=== PATIENT | female | born 1980 | race Caucasian/White ===

== ENCOUNTER 2020-02-25 15:01 | Emergency (ER) | payer OTHER, MEDICAID, SELFPAY ==
[2020-02-25 15:44] VITALS: BP 177/91; PULSE 78; RESP 18; TEMP 36.9; O2SAT 98; BMI 30.1
--- NOTE | 2020-02-25 16:29 | PC.NURSE ---
PT WAS BROUGHT IN FROM WAITING AREA AND BECAME UPSET AT NURSE WHEN SHE APPROACHED PT WITH HER PPE ON NURSE EXPLAINED TO PT IT IS FOR HER AND THE PT PROTECTION. PT BEGAN TO YELL AT NURSE AND TELL HER AHE DOES NOT HAVE COVID SHE ONLY HAS BRONCHITIS. PT HAS NO RECENT NEGATIVE TEST BUT JUST KNOWS IT IS ONLY BRONCHITIS. PT STATES SHE JUST WANTS ANTIBIOTIC AND TO LEAVE. PT TOLD NURSE IF AHE GET COVID FROM BEING HERE SHE WILL BE ANGRY. NURSE TOLD PT SHE WAS FREE TO F/U WITH PCP.
--- NOTE | 2020-02-25 16:49 | ED.URI ---
HPI - URI/Sore Throat General Chief Complaint: Upper Respiratory Symptoms Stated Complaint: BRONCHITIS Time Seen by Provider: 02/25/20 16:41 Source: patient Mode of arrival: ambulatory Limitations: no limitations History of Present Illness HPI Narrative: 39-year-old female presenting to the ED with complaints of productive cough for the past few days worse today. Denies any fevers, sore throat, nasal congestion, chest pain or shortness of breath, nausea/vomiting, abdominal pain, dysuria, constipation or diarrhea or any other symptoms complaints or concerns at this time. Denies recent sick contacts. Reports that she does not want to be tested for COVID as she does not believe this is COVID. Denies recent travel. Related Data Previous Rx's Medication Instructions Recorded albuterol sulfate 0.63 mg INHALATION QID PRN #90 ml 02/25/20 albuterol sulfate 1 inh INHALATION QID PRN #8.5 g 02/25/20 azithromycin See Rx Instructions PO .COMPLEX #3 02/25/20 tab dextromethorphan-guaifenesin 10 ml PO Q4-8H PRN #118 ml 02/25/20 [Robitussin Cough-Chest Tate DM] prednisone 40 mg PO DAILY 5 Days #10 tab 02/25/20 Allergies Allergy/AdvReac Type Severity Reaction Status Date / Time naproxen [NAPROXEN] Allergy Severe ANAPHYLAXIS Verified 02/25/20 15:47 codeine [CODEINE] Allergy Intermediate HIVES Verified 02/25/20 15:47 Sulfa (Sulfonamide Allergy Intermediate DIARRHEA Verified 02/25/20 15:47 Antibiotics) [SULFA (SULFONAMIDE ANTIBIOTICS)] Review of Systems Review of Systems: Constitutional : No Fever, No Chills, No fatigue, No Malaise ENT/Mouth : No sore throat, No runny nose Eyes: No Discharge Cardiovascular : No Chest Pain, No SOB Respiratory : + Cough, + Sputum, No Wheezing, No Smoke Exposure, No Dyspnea Gastrointestinal : No Nausea, No Vomiting, No Diarrhea Genitourinary : No irregular bleeding, No Dysuria, No Urinary Frequency, No Hematuria, No Urinary Incontinence, No Urgency, No Flank Pain, Musculoskeletal : No Myalgia Skin : No rash Neuro : No Headache Yes all other systems are reviewed and are negative PMFSH Past Medical History Attestation statement: The following information was validated with the patient. Social History Social History Advance Directives: No Advance Directives Information Provided: Yes Physical Exam Vital Signs: Vital Signs: Last Vital Signs Temp 98.4 F 02/25/20 15:44 Pulse 78 02/25/20 15:44 Resp 18 02/25/20 15:44 BP 177/91 H 02/25/20 15:44 Pulse Ox 98 02/25/20 15:44 Body Mass Index 30.1 vital signs have been reviewed as normal and appeared to be correct. Blood pressure normal. Heart rate normal. Respiration rate normal. Temperature normal. Oxygen saturation normal. Appearance: Alert. Oriented X3. No acute distress. Head: Normal external exam. Normocephalic. Atraumatic. Eyes: PERRLA. EOMI. Conjunctiva and sclera normal. Eyelids normal. ENT: EAC normal. TM's Normal. Pharynx normal. Uvula midline. Moist mucous membranes. No trismus noted. No drooling noted. No muffled voice noted. Neck: Normal inspection. Neck supple. FROM. No adenopathy. No meningeal signs. CVS: Normal heart rate and rhythm. Heart sound normal. No murmurs noted. Pulses normal throughout. Respiratory: No respiratory distress. Painless inspiration. Breath sounds normal. No wheezes/rales/rhonchi noted. Chest nontender. No accessory muscle usage noted or decreased air movement noted. Back: Full range of motion noted. Skin: Skin warm and dry. Normal skin color. Normal skin turgor. No rashes/lesions/lacerations noted. Extremities: Extremities exhibit normal range of motion. Extremities nontender. Neuro: Oriented X 3. No motor deficit. No sensory deficit. Reflexes normal. Course Course Course Narrative: Will DC home with a course of antibiotics, albuterol inhaler, steroids and instructions return if any new or worsening symptoms. Patient is refusing COVID/RSV and flu swab at this time. Instructed to return if any new or worsening symptoms follow-up with primary care provider. Patient understands agrees the plan. MDM - URI/Sore Throat Medical Records Attestation: I reviewed the patient's medical records. Discharge Plan Discharge Clinical Impression: Bronchitis Patient Disposition: Home, Self-Care Instructions: Acute Bronchitis (ED) Prescriptions: New prednisone 20 mg tablet 40 mg PO DAILY 5 Days Qty: 10 RF: 0 azithromycin 500 mg tablet See Rx Instructions PO .COMPLEX Qty: 3 RF: 0 albuterol sulfate 90 mcg/actuation HFA aerosol inhaler 1 inh inhalation QID PRN (Reason: shortness of breath or wheezing) Qty: 8.5 RF: 0 albuterol sulfate 0.63 mg/3 mL solution for nebulization 0.63 mg inhalation QID PRN (Reason: shortness of breath or wheezing) Qty: 90 RF: 0 Robitussin Cough-Chest Tate DM 5-100 mg/5 mL liquid 10 ml PO Q4-8H PRN (Reason: cough) Qty: 118 RF: 0 Referrals: Physician,None [Primary Care Provider] - 2 days (your pcp) Print Language: Kiswahili
== END 2020-02-25 17:03 | disposition home or self-care (01) ==
PROVIDERS: Emergency Provider Emergency Medicine
DX: J20.9 Acute bronchitis, unspecified (principal); R05 Cough; Z79.899 Other long term (current) drug therapy
CPT/HCPCS: 99283; 99284

== ENCOUNTER 2021-02-23 10:55 | Outpatient (REF) | payer OTHER, MEDICAID, SELFPAY | END 2021-02-23 10:56 | disposition home or self-care (01) | LOC: HO.LAB 10:55 | PROVIDERS: Visit Provider Internal Medicine | DX: Z20.822 Contact with and (suspected) exposure to COVID-19 (principal) | CPT/HCPCS: C9803; U0003; U0005 ==

== ENCOUNTER 2021-11-19 10:49 | Emergency (ER) | payer OTHER, MEDICAID, SELFPAY ==
[2021-11-19 10:54] VITALS: BP 136/81; PULSE 97; RESP 17; TEMP 36.1; O2SAT 97; BMI 29.7
== END 2021-11-19 15:05 | disposition left against medical advice (07) ==
PROVIDERS: Emergency Provider Emergency Medicine
DX: H60.02 Abscess of left external ear (principal)
CPT/HCPCS: 99281

== ENCOUNTER 2023-08-08 07:29 | Emergency (ER) | payer OTHER, MEDICAID, SELFPAY ==
[2023-08-08 07:38] VITALS: BP 134/77; PULSE 83; RESP 16; TEMP 36.9; O2SAT 97; BMI 25.7
[2023-08-08 08:09] LABS: MANUAL DIFF FLAG NO
[2023-08-08 08:11] LABS: Basophils Absolute Auto 0.1 X10*3/uL (0.0-0.2); Basophils Percent Auto 0.6 % (0-2); Eosinophils Absolute Auto 0.2 X10*3/uL (0.0-0.4); Eosinophils Percent Auto 2.6 % (0-4); Hematocrit 41.1 % (37.0-47.0); Hemoglobin 14.1 g/dl (12.0-16.0); Imm Gran Abs Auto 0.03 X10*3/uL (0.00-0.03); Imm Gran Pct Auto 0.3 % (0.0-0.4); Lymphocytes Absolute Auto 2.6 X10*3/uL (1.2-4.9); Mean Corpuscular HGB Conc 34.3 g/dl (31.0-35.0); Mean Corpuscular Hemoglobin 30.4 pg (27.0-33.0); Mean Corpuscular Volume 88.6 fL (80.0-98.0); Monocytes Absolute Auto 0.5 X10*3/uL (0.1-1.2); Monocytes Percent Auto 4.9 % (2-11); Neutrophils Percent Auto 63.6 % (45-73); Platelet Count 200 X10*3/uL (160-400); Red Blood Count 4.64 X10*6/uL (4.20-5.50); Red Cell Distribution Width 13.2 % (11.0-16.0); White Blood Count 9.4 X10*3/uL (4.8-10.8)
--- NOTE | 2023-08-08 08:12 | ED.GENADULT ---
HPI - General Adult General Chief complaint: Dental/Oral Stated complaint: has soars in mouth giving her fever and sugar prob Time Seen by Provider: 08/08/23 08:11 Source: patient Mode of arrival: ambulatory Limitations: no limitations History of Present Illness HPI narrative: Patient is a 43 year old assigned female at with a history of DM presenting to the emergency department today with mouth pain. Patient states that she has an upper partial denture and admitted work it too long recently, causing an ulceration on the roof of her mouth. Patient states that her sugars have been higher than normal usual and she is working on that with her providers. Patient denies any dizziness, lightheadedness, abdominal pain, nausea, vomiting, fever, chills, blurry vision, double vision, loss of vision, chest pain, difficulty breathing, shortness of breath, back pain, night sweats, pain with urination, increased urinary frequency, increased urinary urgency, blood in her urine or stool, syncope or a near syncopal episode, recent trauma or falls, bowel incontinence, bladder incontinence, bowel retention, bladder retention, or any other complaints at this time. Onset (ago): day(s) Location: mouth and left Radiation: non-radiation Severity: mild Severity scale (1-10): 3 Relieving factors: none Exacerbating factors: none Associated symptoms: denies other symptoms Treatments prior to arrival: none Related Data Previous Rx's ?Medication ?Instructions ?Recorded albuterol sulfate 0.63 mg/3 mL 0.63 mg (3 mL) inhalation QID PRN 02/25/20 solution for nebulization shortness of breath or wheezing #90 mL albuterol sulfate 90 mcg/actuation 1 inh inhalation QID PRN shortness 02/25/20 aerosol inhaler of breath or wheezing #8.5 grams azithromycin 500 mg tablet See Rx Instructions PO .COMPLEX #3 02/25/20 tabs dextromethorphan-guaifenesin 5 10 ml PO Q4-8H PRN cough #118 mL 02/25/20 mg-100 mg/5 mL oral liquid (Robitussin Cough-Chest Congestion DM) prednisone 20 mg tablet 40 mg (2 x 20 mg) PO DAILY 02/25/20 wheezing 5 days #10 tabs chlorhexidine gluconate 0.12 % 15 ml buccal BID #118 mL 08/08/23 mouthwash (Peridex) penicillin V potassium 500 mg 500 mg PO BID 10 days #20 tabs 08/08/23 tablet Allergies Allergy/AdvReac Type Severity Reaction Status Date / Time naproxen [NAPROXEN] Allergy Severe ANAPHYLAXIS Verified 08/08/23 07:40 codeine [CODEINE] Allergy Intermediate HIVES Verified 08/08/23 07:40 Sulfa (Sulfonamide Allergy Intermediate DIARRHEA Verified 08/08/23 07:40 Antibiotics) [SULFA (SULFONAMIDE ANTIBIOTICS)] Review of Systems Constitutional: Constitutional: Reports no additional constitutional complaints, Denies chills, Denies fever(s) and Denies night sweats Eyes: Eyes: Reports no additional eye complaints, Denies blurry vision, Denies change in vision, Denies diplopia, Denies eye discharge, Denies loss of vision and Denies eye pain ENT: Denies dizziness and Reports mouth pain Cardiovascular: Cardiovascular: Reports no additional cardiovascular complaints, Denies chest pain, Denies lightheadedness, Denies Loss of Consciousness and Denies dyspnea Respiratory: Respiratory: Reports no additional respiratory complaints and Denies dyspnea Gastrointestinal: Gastrointestinal: Reports no additional gastrointestinal complaints, Denies abdominal pain, Denies melena, Denies hematochezia, Denies change in bowel habits and Denies change in stool character Genitourinary: Genitourinary: Denies hematuria, Denies urinary frequency, Denies dysuria, Denies urinary incontinence, Denies urinary hesitancy and Denies urinary urgency Musculoskeletal: Musculoskeletal: Reports no additional musculoskeletal complaints, Denies numbness and Denies tingling Neurologic: Denies dizziness, Denies loss of vision, Denies numbness and Denies tingling Psychiatric: Psychiatric: Reports no additional psychiatric complaints Endocrine: Endocrine: Reports no additional endocrine complaints Hematologic/Lymphatic: Hematologic/Lymphatic: Reports no additional hematologic/lymphatic complaints Allergic/Immunologic: Allergic/Immunologic: Reports no additional allergic/immunologic complaints PMFSH Past Medical History Attestation statement: The following information was validated with the patient. Source: old records reviewed and nursing notes reviewed Social History Social History Alcohol intake: never Advance Directives: No Advance Directives Information Provided: No Physical Exam ED Vital Signs: Vital Signs - 24 hr 08/08/23 07:38 08/08/23 08:42 Temperature 98.5 F 98.1 F Pulse Rate 83 82 Respiratory Rate 16 16 Blood Pressure 134/77 131/72 Pulse Oximetry 97 97 Oxygen Delivery Method Room Air Room Air BMI result Body Mass Index 25.7 Const General: cooperative, no acute distress, alert and awake Nutritional Appearance: well nourished Orientation/consciousness: patient oriented x3 Limitations: no limitations HENMT Head: Yes normal to inspection and Yes atraumatic Ears: hearing grossly normal bilaterally and external ears normal General nose exam: Normal external nose present, no nasal discharge noted and no epistaxis Face and sinus: Yes normal facial exam, No abrasion and No laceration Mouth: Normal oral and palatal mucosa present, no drooling and no muffled voice Teeth image: 1. ulceration present Eyes General: appearance normal, both eyes and all related structures Periorbital: periorbital findings normal Eyelids: Yes eyelids normal Conjunctivae: conjunctivae normal Pupils: Equal, round and reactive pupils present EOM: EOMs intact bilaterally Neck Neck: Yes normal visual inspection, Yes full ROM and Yes no lymphadenopathy Chest Chest palpation & inspection: normal inspection of the chest Resp Effort & Inspection: normal respiratory effort and able to speak in complete sentences GI Inspection: Yes normal to inspection Neuro General: patient oriented x3 and moves all extremities Cranial nerves: Yes Equal, round and reactive pupils present Cognition (Neuro): normal cognition Motor exam (neuro): 5/5 motor strength present throughout Sensory Exam: Normal double simultaneous stimulation for sensation Coordination: [id number] test normal Extrem General: Yes normal to inspection, Yes full ROM and Yes capillary refill normal Psych Appearance: grossly normal Mental Status: mental status grossly normal Affect: normal affect Attitude: cooperative Thought process: Normal thought process present Thought content: Normal thought content present Insight: Good insight present (Psych) Medical Decision Making Medical Decision Making MDM Narrative: Patient is a 43 year old assigned female at with a history of DM presenting to the emergency department today with left upper mouth pain. Patient's physical exam showed an ulceration where the partial denture was rubbing on the upper left roof of mouth, no active bleeding. Patient's blood work showed a mildly elevated blood sugar which was expected. I explained my physical exam findings as well as all test results to the patient. I answered all questions asked by the patient. I stressed the importance of the patient taking her medication as prescribed. I stressed the importance of the patient following up with her primary care provider. I stressed the importance of the patient returning to the emergency department immediately if her symptoms were to worsen or if she were to develop any dizziness, shortness of breath, difficulty breathing, chest pain, blurry vision, loss of vision, nausea, vomiting, abdominal pain, fever, chills, back pain, or any other complaints. Patient verbalized agreement and understanding with this treatment plan and discharge. Differential Diagnosis Differential Diagnoses: The differential diagnosis associated with the presentation includes Mouth pain Aphthous ulcer of the mouth Hyperglycemia Admission/Observation Consideration of admission/observation: Escalation of care including admission/observation considered Patient would have been admitted to the hospital had her work up had any findings where hospital admission was appropriate and her clinical presentation warranted hospital admission. Lab Data [facility] Lab Attestation statement: I reviewed the patient's lab results. My interpretation of these results are in the [facility] Rationale portion of this note. 08/08/23 08:04 08/08/23 08:04 Labs: Lab Results 08/08/23 Range/Units 08:04 WBC 9.4 (4.8-10.8) X10*3/uL RBC 4.64 (4.20-5.50) X10*6/uL Hgb 14.1 (12.0-16.0) g/dl Hct 41.1 (37.0-47.0) % MCV 88.6 (80.0-98.0) fL MCH 30.4 (27.0-33.0) pg MCHC 34.3 (31.0-35.0) g/dl RDW 13.2 (11.0-16.0) % Plt Count 200 (160-400) X10*3/uL MPV 10.0 (9.4-12.3) fL Immature Gran % (Auto) 0.3 (0.0-0.4) % Neut % (Auto) 63.6 (45-73) % Lymph % (Auto) 28.0 (20-40) % [place] % (Auto) 4.9 (2-11) % Eos % (Auto) 2.6 (0-4) % Baso % (Auto) 0.6 (0-2) % Lymph # (Auto) 2.6 (1.2-4.9) X10*3/uL [place] # (Auto) 0.5 (0.1-1.2) X10*3/uL Eos # (Auto) 0.2 (0.0-0.4) X10*3/uL Baso # (Auto) 0.1 (0.0-0.2) X10*3/uL Abs Immat Gran (auto) 0.03 (0.00-0.03) X10*3/uL Absolute Neuts (auto) 6.0 (2.0-8.3) x10*3/uL Absolute Nucleated RBC 0.000 (0.0-0.012) X10*3/uL Nucleated RBC % (auto) 0.0 (0.0-0.2) /100WBC Sodium 136 (135-145) mmol/L Potassium 4.4 (3.3-5.1) mmol/L Chloride 101 (96-108) mmol/L Carbon Dioxide 24 (22-29) mmol/L Anion Gap 15 (12-20) BUN 12 (9-16) mg/dL Creatinine 0.74 (0.5-1.4) mg/dL Estim Creat Clear Calc 97.8 Estimated GFR > 60 Random Glucose 360 H* (60-115) mg/dL Calcium 9.5 (8.4-10.2) mg/dL Prescription Management I considered prescription management with: Antibiotic (given patient's history of DM and current clinical presentation, I prescribed an antibiotic for possible oral infection) Chronic Conditions Patient?s care impacted by: Diabetes Discharge Plan Discharge Clinical Impression: Hyperglycemia, Aphthous ulcer of mouth Patient Disposition: Home, Self-Care Instructions: Canker Sores (ED), Diabetic Hyperglycemia (ED) Additional Instructions: Take your antibiotic as prescribed. Follow up with your primary care provider. Return to the emergency department immediately if your symptoms worsen or if you develop any dizziness, shortness of breath, difficulty breathing, chest pain, blurry vision, loss of vision, nausea, vomiting, abdominal pain, fever, chills, back pain, or any other complaints. Prescriptions: New penicillin V potassium 500 mg tablet 500 mg PO BID 10 Days Qty: 20 0RF chlorhexidine gluconate [Peridex] 0.12 % mouthwash 15 ml buccal BID Qty: 118 0RF No Action prednisone 20 mg tablet 40 mg PO DAILY 5 Days Qty: 10 0RF azithromycin 500 mg tablet See Rx Instructions PO .COMPLEX Qty: 3 0RF Rx Instructions: take 500 mg today (day 1), then 250 mg for 4 days (days 2-5) albuterol sulfate 90 mcg/actuation HFA aerosol inhaler 1 inh inhalation QID PRN (Reason: shortness of breath or wheezing) Qty: 8.5 0RF albuterol sulfate 0.63 mg/3 mL solution for nebulization 0.63 mg inhalation QID PRN (Reason: shortness of breath or wheezing) Qty: 90 0RF Robitussin Cough-Chest Tate DM 5-100 mg/5 mL liquid 10 ml PO Q4-8H PRN (Reason: cough) Qty: 118 0RF Referrals: [facility] [place] Medicine [Provider Group] (Call to establish and follow up with a primary care provider. If you already have a primary care provider, please follow up with them.) [facility] [place] [facility] [Provider Group] [facility] [place] [facility] Care[facility] [Provider Group] Stand Alone Forms: Work/School Release Interventions: ED Discharge Assessment Last Done: 08/08/23 08:42 Discharge Date/Time: 08/08/23 08:43 Print Language: Luxembourgish
[2023-08-08 08:26] LABS: Anion Gap 15 (12-20); Blood Urea Nitrogen 12 mg/dL (9-16); Calcium 9.5 mg/dL (8.4-10.2); Carbon Dioxide 24 mmol/L (22-29); Chloride 101 mmol/L (96-108); Creatinine Clr Calc Pharmacy 97.8; Estimated Glomerular Filt Rate > 60; Glucose Random 360 mg/dL (60-115); Potassium 4.4 mmol/L (3.3-5.1); Sodium 136 mmol/L (135-145)
[2023-08-08 08:42] VITALS: BP 131/72; PULSE 82; RESP 16; TEMP 36.7; O2SAT 97
--- NOTE | 2023-08-08 08:42 | PC.NURSE ---
pt a&ox3, was here only for dental pain, will discharge with abx.
== END 2023-08-08 08:43 | disposition home or self-care (01) ==
PROVIDERS: Emergency Provider Student in an Organized Health Care Education/Training Program
DX: K12.0 Recurrent oral aphthae (principal); E11.65 Type 2 diabetes mellitus with hyperglycemia; Z79.899 Other long term (current) drug therapy
CPT/HCPCS: 36415; 80048; 85025; 99282; 99283

== ENCOUNTER 2023-09-04 12:43 | Emergency (ER) | payer OTHER, MEDICAID, SELFPAY ==
--- NOTE | ~2023-09-04 | XR_ITS ---
EXAMINATION: XR FOOT, RIGHT CLINICAL INFORMATION: Potential infection of the right heel.? Osteomyelitis COMPARISON: Right foot 03/24/2019 TECHNIQUE: AP, lateral, and oblique views of the right foot. FINDINGS: There is marked soft tissue swelling of the foot, particularly the dorsum and the plantar aspect of the heel. The bones are intact. No acute fracture.? Old healed fracture of the distal fifth metatarsal. No bone destruction or periosteal reaction. Alignment is anatomic. Mild degenerative change of the talonavicular joint. XR/XR foot RT min 3V IMPRESSION: Marked soft tissue swelling of the foot. No radiographic evidence of osteomyelitis. Depending on level of clinical concern, MRI scan could be obtained for further evaluation.
--- NOTE | ~2023-09-04 | XR_ITS ---
EXAMINATION: 1. Right ankle. 2. Right lower leg CLINICAL INFORMATION: Heel wound. Cellulitis. COMPARISON: None. TECHNIQUE: 1. Right ankle. 3 views 2. Right lower leg. 2 views FINDINGS: 1. Right ankle. No focal bone lesion or bone destruction. Joint space is normal. No soft tissue abnormality. 2. Right lower leg. No focal bone lesion. Tibia and fibula are normal. Knee joint is unremarkable. No soft tissue abnormality. XR/XR ankle RT min 3V IMPRESSION: 1. Normal right ankle. 2. Normal right lower leg.
--- NOTE | ~2023-09-04 | XR_ITS ---
EXAMINATION: 1. Right ankle. 2. Right lower leg CLINICAL INFORMATION: Heel wound. Cellulitis. COMPARISON: None. TECHNIQUE: 1. Right ankle. 3 views 2. Right lower leg. 2 views FINDINGS: 1. Right ankle. No focal bone lesion or bone destruction. Joint space is normal. No soft tissue abnormality. 2. Right lower leg. No focal bone lesion. Tibia and fibula are normal. Knee joint is unremarkable. No soft tissue abnormality. XR/XR tibia fibula RT 2V IMPRESSION: 1. Normal right ankle. 2. Normal right lower leg.
[2023-09-04 12:57] VITALS: BP 108/83; PULSE 102; RESP 19; TEMP 37; O2SAT 99; BMI 24.3
--- NOTE | 2023-09-04 13:00 | ED_ITS ---
HPI - Skin/Abscess/Foreign Bdy General Chief complaint: Extremity Injury, Lower Stated complaint: r foot infection Related Data Previous Rx's ?Medication ?Instructions ?Recorded albuterol sulfate 0.63 mg/3 mL 0.63 mg (3 mL) inhalation QID PRN 02/25/20 solution for nebulization shortness of breath or wheezing #90 mL albuterol sulfate 90 mcg/actuation 1 inh inhalation QID PRN shortness 02/25/20 aerosol inhaler of breath or wheezing #8.5 grams azithromycin 500 mg tablet See Rx Instructions PO .COMPLEX #3 02/25/20 tabs dextromethorphan-guaifenesin 5 10 ml PO Q4-8H PRN cough #118 mL 02/25/20 mg-100 mg/5 mL oral liquid (Robitussin Cough-Chest Congestion DM) prednisone 20 mg tablet 40 mg (2 x 20 mg) PO DAILY 02/25/20 wheezing 5 days #10 tabs chlorhexidine gluconate 0.12 % 15 ml buccal BID #118 mL 08/08/23 mouthwash (Peridex) penicillin V potassium 500 mg 500 mg PO BID 10 days #20 tabs 08/08/23 tablet Allergies Allergy/AdvReac Type Severity Reaction Status Date / Time naproxen [NAPROXEN] Allergy Severe ANAPHYLAXIS Verified 09/04/23 13:00 codeine [CODEINE] Allergy Intermediate HIVES Verified 09/04/23 13:00 Sulfa (Sulfonamide Allergy Intermediate DIARRHEA Verified 09/04/23 13:00 Antibiotics) [SULFA (SULFONAMIDE ANTIBIOTICS)] PMFSH Social History Social History Alcohol intake: never Advance Directives: No Advance Directives Information Provided: Yes Physical Exam 2 Vital Signs: Vital Signs: Last Vital Signs Temp 98.6 F 09/04/23 12:57 Pulse 102 H 09/04/23 12:57 Resp 19 09/04/23 12:57 BP 108/83 09/04/23 12:57 Pulse Ox 99 09/04/23 12:57 O2 Del Method Room Air 09/04/23 12:57 BMI result Body Mass Index 24.3 Course Course Course Narrative: This is a Rapid Medical Examination (RME) performed by Arvin Vega PA-C in triage. Full HPI, ROS, assessment and treatment plan per primary provider in the Main ED. 43 yo female hx of insulin dependent DM here for eval of right heel wound x months. reports self- lancing the area at home. unable to get in with her physician until December. concerned she has osteo. denies fever/chills. chronic wound noted to right heel. no active drainage. erythema tracking up into right lower leg. ttp. Plan: labs, xr Reevaluation(s) Reevaluation #1: Patient left the ED without completing treatment. Medical Decision Making Lab Data 09/04/23 13:18 09/04/23 13:18 Labs: Lab Results 09/04/23 Range/Units 13:18 WBC 11.7 H (4.8-10.8) X10*3/uL RBC 4.49 (4.20-5.50) X10*6/uL Hgb 13.6 (12.0-16.0) g/dl Hct 40.1 (37.0-47.0) % MCV 89.3 (80.0-98.0) fL MCH 30.3 (27.0-33.0) pg MCHC 33.9 (31.0-35.0) g/dl RDW 13.4 (11.0-16.0) % Plt Count 342 D (160-400) X10*3/uL MPV 9.3 L (9.4-12.3) fL Immature Gran % (Auto) 0.6 H (0.0-0.4) % Neut % (Auto) 66.7 (45-73) % Lymph % (Auto) 25.0 (20-40) % [place] % (Auto) 5.3 (2-11) % Eos % (Auto) 2.0 (0-4) % Baso % (Auto) 0.4 (0-2) % Lymph # (Auto) 2.9 (1.2-4.9) X10*3/uL [place] # (Auto) 0.6 (0.1-1.2) X10*3/uL Eos # (Auto) 0.2 (0.0-0.4) X10*3/uL Baso # (Auto) 0.1 (0.0-0.2) X10*3/uL Abs Immat Gran (auto) 0.07 H (0.00-0.03) X10*3/uL Absolute Neuts (auto) 7.8 (2.0-8.3) x10*3/uL Absolute Nucleated RBC 0.000 (0.0-0.012) X10*3/uL Nucleated RBC % (auto) 0.0 (0.0-0.2) /100WBC Sodium 137 (135-145) mmol/L Potassium 4.0 (3.3-5.1) mmol/L Chloride 98 (96-108) mmol/L Carbon Dioxide 28 (22-29) mmol/L Anion Gap 15 (12-20) BUN 10 (9-16) mg/dL Creatinine 0.67 (0.5-1.4) mg/dL Estim Creat Clear Calc 108.0 Estimated GFR > 60 Random Glucose 319 H (60-115) mg/dL Calcium 10.0 (8.4-10.2) mg/dL Magnesium 1.7 (1.6-2.6) mg/dL Total Bilirubin 0.4 (0.0-1.0) mg/dL AST 59 H (5-31) U/L ALT 85 H (0-31) U/L Alkaline Phosphatase 237 H (39-117) U/L Total Protein 7.9 (6.5-8.0) g/dL Albumin 4.1 (3.5-5.0) g/dL Lipase 5 L (8-78) U/L Beta HCG, Quant < 2 mIU/mL Discharge Plan Discharge Clinical Impression: Wound of foot Patient Disposition: Left W/O Completing Treatment Prescriptions: No Action prednisone 20 mg tablet 40 mg PO DAILY 5 Days Qty: 10 0RF azithromycin 500 mg tablet See Rx Instructions PO .COMPLEX Qty: 3 0RF Rx Instructions: take 500 mg today (day 1), then 250 mg for 4 days (days 2-5) albuterol sulfate 90 mcg/actuation HFA aerosol inhaler 1 inh inhalation QID PRN (Reason: shortness of breath or wheezing) Qty: 8.5 0RF albuterol sulfate 0.63 mg/3 mL solution for nebulization 0.63 mg inhalation QID PRN (Reason: shortness of breath or wheezing) Qty: 90 0RF Robitussin Cough-Chest Tate DM 5-100 mg/5 mL liquid 10 ml PO Q4-8H PRN (Reason: cough) Qty: 118 0RF penicillin V potassium 500 mg tablet 500 mg PO BID 10 Days Qty: 20 0RF chlorhexidine gluconate [Peridex] 0.12 % mouthwash 15 ml buccal BID Qty: 118 0RF Discharge Date/Time: 09/04/23 20:06
[2023-09-04 13:27] LABS: MANUAL DIFF FLAG NO
[2023-09-04 13:31] LABS: Basophils Absolute Auto 0.1 X10*3/uL (0.0-0.2); Basophils Percent Auto 0.4 % (0-2); Eosinophils Absolute Auto 0.2 X10*3/uL (0.0-0.4); Hematocrit 40.1 % (37.0-47.0); Hemoglobin 13.6 g/dl (12.0-16.0); Imm Gran Abs Auto 0.07 X10*3/uL (0.00-0.03); Imm Gran Pct Auto 0.6 % (0.0-0.4); Lymphocytes Absolute Auto 2.9 X10*3/uL (1.2-4.9); Mean Corpuscular HGB Conc 33.9 g/dl (31.0-35.0); Mean Corpuscular Hemoglobin 30.3 pg (27.0-33.0); Mean Corpuscular Volume 89.3 fL (80.0-98.0); Mean Platelet Volume 9.3 fL (9.4-12.3); Monocytes Absolute Auto 0.6 X10*3/uL (0.1-1.2); Monocytes Percent Auto 5.3 % (2-11); Neutrophils Absolute Auto 7.8 x10*3/uL (2.0-8.3); Neutrophils Percent Auto 66.7 % (45-73); Platelet Count 342 X10*3/uL (160-400); Red Blood Count 4.49 X10*6/uL (4.20-5.50); Red Cell Distribution Width 13.4 % (11.0-16.0); White Blood Count 11.7 X10*3/uL (4.8-10.8)
[2023-09-04 13:52] LABS: Alanine Aminotransferase 85 U/L (0-31); Albumin Level 4.1 g/dL (3.5-5.0); Alkaline Phosphatase 237 U/L (39-117); Anion Gap 15 (12-20); Aspartate Amino Transferase 59 U/L (5-31); Bilirubin Total 0.4 mg/dL (0.0-1.0); Blood Urea Nitrogen 10 mg/dL (9-16); Carbon Dioxide 28 mmol/L (22-29); Chloride 98 mmol/L (96-108); Estimated Glomerular Filt Rate > 60; Glucose Random 319 mg/dL (60-115); Lipase 5 U/L (8-78); Magnesium 1.7 mg/dL (1.6-2.6); Sodium 137 mmol/L (135-145); Total Protein 7.9 g/dL (6.5-8.0)
[2023-09-04 13:54] LABS: HCG Quantitative < 2 mIU/mL
--- NOTE | 2023-09-04 20:05 | PC.NURSE ---
called x2 no answer
== END 2023-09-04 20:06 | disposition left against medical advice (07) ==
PROVIDERS: Physician Assistant Medical; Emergency Provider Emergency Medicine
DX: S91.301A Unspecified open wound, right foot, initial encounter (principal); R10.2 Pelvic and perineal pain; M25.571 Pain in right ankle and joints of right foot; M79.671 Pain in right foot; X58.XXXA Exposure to other specified factors, initial encounter; Y93.89 Activity, other specified; Y92.9 Unspecified place or not applicable; Y99.8 Other external cause status; Z79.899 Other long term (current) drug therapy
CPT/HCPCS: 36415; 73590; 73610; 73630; 80053; 83690; 83735; 84702; 85025; 99281; 99283

== ENCOUNTER 2023-12-26 03:18 | Emergency (ER) | payer MEDICAID, SELFPAY ==
[2023-12-26 03:22] VITALS: BP 109/79; PULSE 72; RESP 16; TEMP 37.1; O2SAT 97; BMI 23.7
--- NOTE | 2023-12-26 05:10 | ED_ITS ---
HPI - General Adult General Chief complaint: General Medical Stated complaint: nose infection Time Seen by Provider: 12/26/23 05:10 History of Present Illness ED Provider: Hannah CHURCHILL narrative: The patient is a type 2 diabetic who uses insulin. She says she recently recovered from foot infection which was apparently a MRSA infection. Comes to the emergency room tonight because of 3 days of pain in her left nostril. She says there is a scab like area at the opening of the left nostril which feels like it has gotten infected. She feels that she has developed some swelling to the base of the nose and she is worried that she is having some swelling in the region of the gums of the maxilla where she has dental implants. Related Data Previous Rx's ?Medication ?Instructions ?Recorded albuterol sulfate 0.63 mg/3 mL 0.63 mg (3 mL) inhalation QID PRN 02/25/20 solution for nebulization shortness of breath or wheezing #90 mL albuterol sulfate 90 mcg/actuation 1 inh inhalation QID PRN shortness 02/25/20 aerosol inhaler of breath or wheezing #8.5 grams azithromycin 500 mg tablet See Rx Instructions PO .COMPLEX #3 02/25/20 tabs dextromethorphan-guaifenesin 5 10 ml PO Q4-8H PRN cough #118 mL 02/25/20 mg-100 mg/5 mL oral liquid (Robitussin Cough-Chest Congestion DM) prednisone 20 mg tablet 40 mg (2 x 20 mg) PO DAILY 02/25/20 wheezing 5 days #10 tabs chlorhexidine gluconate 0.12 % 15 ml buccal BID #118 mL 08/08/23 mouthwash (Peridex) penicillin V potassium 500 mg 500 mg PO BID 10 days #20 tabs 08/08/23 tablet amoxicillin 875 mg-potassium 1 tab PO BID #16 tabs 12/26/23 clavulanate 125 mg tablet doxycycline monohydrate 100 mg 100 mg PO BID 8 days #16 tabs 12/26/23 tablet Allergies Allergy/AdvReac Type Severity Reaction Status Date / Time naproxen [NAPROXEN] Allergy Severe ANAPHYLAXIS Verified 12/26/23 03:25 codeine [CODEINE] Allergy Intermediate HIVES Verified 12/26/23 03:25 Sulfa (Sulfonamide Allergy Intermediate DIARRHEA Verified 12/26/23 03:25 Antibiotics) [SULFA (SULFONAMIDE ANTIBIOTICS)] Review of Systems Review of Systems: Yes all other systems are reviewed and are negative [facility] Social History Social History Alcohol intake: never Advance Directives: Yes Advance Directives Information Provided: Yes Advance Directives on File: No Physical Exam ED Vital Signs: Vital Signs - 24 hr 12/26/23 03:22 12/26/23 05:40 Temperature 98.8 F 98.8 F Pulse Rate 72 72 Respiratory Rate 16 16 Blood Pressure 109/79 109/79 Pulse Oximetry 97 97 Oxygen Delivery Method Room Air Room Air BMI result Body Mass Index 23.7 Const Other: The patient is a 43-year-old woman who was awake and alert. She is pleasant and cheerful. She does not seem toxic. HENMT Other: The patient has an area at the vestibule of the left nostril near the tip of the nose but on the mucosal side where there is an area of scab like material which is quite tender. She has some tenderness at the base of the columella. On her intraoral exam the patient has dental implants for teeth 8 and 9. She has tenderness in the buccal vestibule in the gingiva anterior to the dental implants. There is no purulent drainage. There is no trismus. Eyes General: appearance normal, both eyes and all related structures Neck Neck: Yes full ROM and Yes no lymphadenopathy Resp Effort & Inspection: normal respiratory effort Auscultation: clear to auscultation bilaterally Cardio Rate: regular rate Rhythm: regular rhythm Heart sounds: S1 normal heart sound present and S2 normal heart sound present Skin Other: The skin of the face is unremarkable. No erythema or obvious external swelling. Neuro Other: The patient is awake and alert with a normal mental status. Her demeanor is very pleasant and nontoxic. Cranial nerves are intact and her gait is normal. Extrem Other: No peripheral edema Medications Administered Discontinued Medications Generic Name Dose Route Start Last Admin Trade Name Freq PRN Reason Stop Dose Admin Amoxicillin/Clavulanate Potassium 875 mg 12/26/23 05:19 12/26/23 05:40 Amoxicillin/Potassium Clav 875 Mg Tablet PO 12/26/23 05:20 875 mg ONCE ONE Administration Doxycycline Monohydrate 100 mg 12/26/23 05:19 12/26/23 05:40 Doxycycline Monohydrate 100 Mg Capsule PO 12/26/23 05:20 100 mg ONCE ONE Administration Medical Decision Making Medical Decision Making [facility] Narrative: The patient seems to have some kind of a soft tissue skin infection near the tip of the nose that she feels is spreading towards the mucosa of the mouth. She was recently treated for a MRSA infection on her foot. She has a sulfa allergy. She will be placed on doxycycline and Augmentin. She should follow up with the regular doctor. Discharge Plan Discharge Clinical Impression: Cellulitis of nostril Patient Disposition: Home, Self-Care Additional Instructions: Please take the doxycycline and the Augmentin 2 times a day. You may also apply warm compresses to your nose and your upper lip. Please stay in touch with your regular doctor's office for additional advice as needed. Return to the emergency room if significantly worse. Prescriptions: New doxycycline monohydrate 100 mg tablet 100 mg PO BID 8 Days Qty: 16 0RF amoxicillin-pot clavulanate 875-125 mg tablet 1 tab PO BID Qty: 16 0RF No Action prednisone 20 mg tablet 40 mg PO DAILY 5 Days Qty: 10 0RF azithromycin 500 mg tablet See Rx Instructions PO .COMPLEX Qty: 3 0RF Rx Instructions: take 500 mg today (day 1), then 250 mg for 4 days (days 2-5) albuterol sulfate 90 mcg/actuation HFA aerosol inhaler 1 inh inhalation QID PRN (Reason: shortness of breath or wheezing) Qty: 8.5 0RF albuterol sulfate 0.63 mg/3 mL solution for nebulization 0.63 mg inhalation QID PRN (Reason: shortness of breath or wheezing) Qty: 90 0RF Robitussin Cough-Chest Tate DM 5-100 mg/5 mL liquid 10 ml PO Q4-8H PRN (Reason: cough) Qty: 118 0RF penicillin V potassium 500 mg tablet 500 mg PO BID 10 Days Qty: 20 0RF chlorhexidine gluconate [Peridex] 0.12 % mouthwash 15 ml buccal BID Qty: 118 0RF Referrals: Reena Booker PA [[facility] [employer] [employer]] - (left nostril infection) Interventions: ED Discharge Assessment Last Done: 12/26/23 05:40 Discharge Date/Time: 12/26/23 05:40 Print Language: Estonian
[2023-12-26 05:40] VITALS: BP 109/79; PULSE 72; RESP 16; TEMP 37.1; O2SAT 97
[2023-12-26] MEDS: Doxycycline Monohydrate 100 MG CAPSULE PO (05:40)
[2023-12-26] MEDS: Amoxicillin/Potassium Clav 875 MG TABLET PO (05:40)
== END 2023-12-26 05:40 | disposition home or self-care (01) ==
PROVIDERS: Emergency Provider Emergency Medicine
DX: J34.0 Abscess, furuncle and carbuncle of nose (principal)
CPT/HCPCS: 99283

== ENCOUNTER 2024-02-20 10:14 | Emergency (ER) | payer OTHER, SELFPAY ==
--- NOTE | ~2024-02-20 | CT_ITS ---
EXAMINATION: CT head for STROKE CLINICAL INFORMATION: right sided weakness cannot speak COMPARISON: CT head 12/23/2018 TECHNIQUE: Contiguous axial imaging was performed from the skull base to vertex without intravenous contrast. This CT examination was performed using dose optimization techniques as appropriate, variously including the following: * Automated exposure control * Adjustment of mA and/or kV according to patient size (this includes techniques or standardized protocols for targeted exams where dose is matched to indication/reason for exam; i.e. extremities or head) * Use of iterative reconstruction technique DLP: 638 mGy-cm. FINDINGS: Ill-defined hypodensity in the left frontal lobe, MCA territory. No acute intracranial hemorrhage. No abnormal mass effect or midline shift is seen. No extra-axial fluid collections are identified. No hydrocephalus. No significant volume loss. There is no abnormal attenuation within the brain parenchyma. The cerebellar tonsils are well positioned. No acute osseous or soft tissue abnormality. Visualized portions of the orbits are unremarkable. The mastoid air cells and visualized portions of the paranasal sinuses are well aerated. CT/CT head for STROKE IMPRESSION: 1. Ill-defined hypodensity in the left frontal lobe, MCA territory, concerning for acute infarct. 2. No acute intracranial hemorrhage. These results were discussed with Sahil Young MD by telephone on 02/20/2024 at 10:30 AM and it was ascertained that the content of the report was understood at the time of direct communication. Electronically signed by: Allison Mcclelland DO 02/20/2024 10:33 AM [facility] [place]
--- NOTE | ~2024-02-20 | CT_ITS ---
EXAMINATION: CT brain. CLINICAL INFORMATION: Cerebrovascular disease. Right-sided hemiparesis, slurring of speech. COMPARISON: Stroke CT scan of brain on 02/20/2024 TECHNIQUE: Multiple axial images were obtained from base of skull to the vertex with IV contrast enhancement. Coronal and sagittal images of the brain were reconstructed from the axial image data. This CT examination was performed using dose optimization techniques as appropriate, variously including the following: *Automated exposure control *Adjustment of mA and/or kV according to patient size (this includes techniques or standardized protocols for targeted exams where dose is matched to indication/reason for exam; i.e. extremities or head) *Use of iterative reconstruction technique DLP: 1469 mGy-cm FINDINGS: Ventricles, sulci and cisterns are normal. A 0.7 cm chronic lacunar infarct is seen in left anterior frontal centrum semiovale. Extensive acute left middle cerebral artery territory infarction with decreased attenuation and sulcal effacement is seen in posterior left frontal lobe, left insular cortex. There is no midline shift, no abnormal intra- or extra- axial fluid accumulation. Perez and white matter differentiation is normal. Postcontrast images show normal enhancement of major intracerebral blood vessels. No enhancing intracranial mass lesion or abnormal meningeal enhancement is seen. Bone window images show no evidence of skull fracture. CT/CT angio head neck STROKE IMPRESSION: 1. Unchanged acute left middle cerebral artery territory cerebral infarction involving the posterior left frontal lobe and left insular cortex. 2. No intracranial hemorrhage or skull fracture is seen. 3. No evidence of space occupying or enhancing intracranial mass lesion could be found. 4. The current plain CT scan of the brain shows no diagnostic evidence of acute cerebral infarction. EXAMINATION: CT angiogram of brain. CLINICAL INFORMATION: Cerebral vascular disease.Right-sided hemiparesis, slurring of speech. COMPARISON: None available. TECHNIQUE: CT angiogram of the brain was performed C7 following the administration of 70 mL of Omnipaque 350. Coronal and sagittal images were reconstructed from axial image data. 3-dimensional volumetric maximum intensity projection images in multiple planes were reconstructed on an independent workstation. This was performed under concurrent direct supervision and monitoring by radiologist. Reformatted maximum intensity projection angiographic images of the brain were reconstructed on an independent workstation. This CT examination was performed using dose optimization techniques as appropriate, variously including the following: *Automated exposure control *Adjustment of mA and/or kV according to patient size (this includes techniques or standardized protocols for targeted exams where dose is matched to indication/reason for exam; i.e. extremities or head) *Use of iterative reconstruction technique DLP: 1469 mGy-cm FINDINGS: There is normal visualization of bilateral anterior, middle and posterior cerebral arteries, internal carotid arteries, basilar artery and terminal portions of bilateral vertebral arteries. There is asymmetric marked decrease in contrast enhancement of the mid M3 opercular and M4 cortical segmental arterial branches of the left middle cerebral artery. Anterior communicating artery is normal. Bilateral posterior communicating arteries are normal. The right internal carotid siphon shows extensive tram track shape atherosclerotic calcifications without causing hemodynamically significant stenosis. Extensive atherosclerotic calcifications are present in the left internal carotid siphon, showing week collateral and retrograde contrast filling down to C4 segment, markedly diminished in caliber.. Timing of the bolus allows assessment of the major dural venous sinuses. The major cerebral venous sinuses show normal contrast filling. IMPRESSION: 1. Findings are compatible with extensive thrombosis of M3 and M4 segments of the left middle cerebral artery. 2. Occluded left internal carotid artery with weak collateral and retrograde contrast filling of the left internal carotid siphon, containing extensive calcified atherosclerotic plaques. 3. Extensive right internal carotid artery siphon tram track shape atherosclerotic calcifications are present without causing hemodynamically significant stenosis. EXAMINATION: CT angiogram of neck. CLINICAL INFORMATION: Cerebral vascular disease, Right-sided hemiparesis, slurring of speech.. COMPARISON: None available. TECHNIQUE: Contrast enhanced CT angiogram of the neck and superior mediastinum was performed following the administration of 70 mL of Omnipaque 350. 3-dimensional volumetric maximum intensity projection images in multiple planes were reconstructed on an independent workstation. This was performed under concurrent direct supervision and monitoring by radiologist. Reformatted maximum intensity projection angiographic images of the neck and superior mediastinum were reconstructed on an independent workstation. Magnified images of carotid bifurcations were reconstructed. This CT examination was performed using dose optimization techniques as appropriate, variously including the following: *Automated exposure control *Adjustment of mA and/or kV according to patient size (this includes techniques or standardized protocols for targeted exams where dose is matched to indication/reason for exam; i.e. extremities or head) *Use of iterative reconstruction technique DLP: 1469 mGy-cm STENOSIS MEASUREMENT: Degree of stenosis was measured and calculated based on NASCET criteria. Carotid stenosis reference using NASCET criteria: % stenosis = (1 - narrowest ICA diameter/diameter of distal cervical ICA) x 100. Mild - < 50% stenosis. Moderate - 50-69% stenosis. Severe - 70-94% stenosis. Near occlusion - 95-99% stenosis. Occluded - 100% stenosis. FINDINGS: RIGHT SIDE: Right internal carotid artery: Posterior wall soft plaque is present, causing 67.4% stenosis at origin. The rest of the right cervical internal carotid artery is smoothly patent.. Right external carotid artery: Smoothly patent. Right common carotid artery: Smoothly patent. Right vertebral artery: Smoothly patent and strongly dominant. LEFT SIDE: Left internal carotid artery: Completely occluded at 0.6 cm from origin. Left external carotid artery: Smoothly patent. Left common carotid artery: Smoothly patent. Left vertebral artery: Smoothly patent. At the superior mediastinum, the visualized right innominate artery, right subclavian artery and common carotid arteries are smoothly patent starting from the origin at the aortic arch. There is 56% stenosis in proximal left subclavian artery between the origin of left vertebral artery and the thyrocervical trunk. IMPRESSION: 1. Complete occlusion of the left internal carotid artery shortly after the origin. 2. Proximal right internal carotid artery soft plaque is seen causing moderate 67.4% stenosis in diameter at origin. 3. Patent bilateral vertebral arteries with strong right-sided dominance. 4. Moderate proximal left subclavian artery stenosis is present. Electronically signed by: Kelly Singh MD 02/20/2024 11:53 AM EST
--- NOTE | 2024-02-20 10:17 | ED_ITS ---
HPI - General Adult General Chief complaint: Stroke Stated complaint: R SIDE FACIAL DROOP, SPEECH CHANGES,LKW 10PM Time Seen by Provider: 02/20/24 10:17 History of Present Illness ED Provider: Hannah CHURCHILL narrative: The patient is a 43-year-old woman with a history of diabetes on insulin. The patient comes to the emergency room because of difficulty speaking and right- sided weakness. She was last definitely known to be well at around 21:00 when she went to bed last night. The patient's niece who was in her house says that at around 01:00 she heard the patient vomiting. Apparently the patient awoke later in the morning at around 06:[address] the niece's friend to school. Friend later texted the niece that the patient had not been speaking properly. Ultimately the niece and another person at the house realized that the patient was having a great deal of trouble communicating and also had some right-sided facial weakness and called 911. Paramedics state when they arrived at the house the patient walked out to the ambulance smoking a cigarette. The patient had severe difficulty speaking and a right-sided facial droop as well as some mild right arm weakness. The patient is apparently on anticoagulation for reasons which are not clear. Related Data Previous Rx's ?Medication ?Instructions ?Recorded albuterol sulfate 0.63 mg/3 mL 0.63 mg (3 mL) inhalation QID PRN 02/25/20 solution for nebulization shortness of breath or wheezing #90 mL albuterol sulfate 90 mcg/actuation 1 inh inhalation QID PRN shortness 02/25/20 aerosol inhaler of breath or wheezing #8.5 grams azithromycin 500 mg tablet See Rx Instructions PO .COMPLEX #3 02/25/20 tabs dextromethorphan-guaifenesin 5 10 ml PO Q4-8H PRN cough #118 mL 02/25/20 mg-100 mg/5 mL oral liquid (Robitussin Cough-Chest Congestion DM) prednisone 20 mg tablet 40 mg (2 x 20 mg) PO DAILY 02/25/20 wheezing 5 days #10 tabs chlorhexidine gluconate 0.12 % 15 ml buccal BID #118 mL 08/08/23 mouthwash (Peridex) penicillin V potassium 500 mg 500 mg PO BID 10 days #20 tabs 08/08/23 tablet amoxicillin 875 mg-potassium 1 tab PO BID #16 tabs 12/26/23 clavulanate 125 mg tablet doxycycline monohydrate 100 mg 100 mg PO BID 8 days #16 tabs 12/26/23 tablet Allergies Allergy/AdvReac Type Severity Reaction Status Date / Time naproxen [NAPROXEN] Allergy Severe ANAPHYLAXIS Verified 02/20/24 10:44 codeine [CODEINE] Allergy Intermediate HIVES Verified 02/20/24 10:44 Sulfa (Sulfonamide Allergy Intermediate DIARRHEA Verified 02/20/24 10:44 Antibiotics) [SULFA (SULFONAMIDE ANTIBIOTICS)] Review of Systems 2 Review of Systems: Yes Unobtainable due to mental condition [facility] Social History Social History Alcohol intake: never Smoked in Last 30 Days: No Use of substances other than those prescribed or required for medical reasons: No Advance Directives: No Advance Directives Information Provided: Yes Do you have a plan to hurt others: No Plan Patient : No Physical Exam ED Vital Signs: Vital Signs - 24 hr 02/20/24 10:42 02/20/24 10:51 02/20/24 11:39 Temperature 97.9 F 97.9 F Pulse Rate 79 96 59 Respiratory Rate 18 18 15 Blood Pressure 198/86 H 170/88 H 114/85 Pulse Oximetry 99 97 97 Oxygen Delivery Method Room Air Room Air BMI result Body Mass Index 25.6 Const Other: The patient is a 43-year-old woman who looks older than her age. She was awake and alert and responsive but had an obvious right-sided facial weakness and was unable to speak. HENMT Other: There is a fairly dense right-sided facial weakness Eyes Other: Pupils are round and equal, extraocular movements are intact Neck Neck: Yes full ROM Resp Effort & Inspection: normal respiratory effort Auscultation: clear to auscultation bilaterally Cardio Rate: regular rate Rhythm: regular rhythm Heart sounds: S1 normal heart sound present and S2 normal heart sound present GI Other: Abdomen is soft and nontender Skin Other: Skin is pale and dry Neuro Other: The patient is awake and keenly responsive. She has a significant right-sided facial weakness. She she seems to have severe difficulty expressing herself to the point of muteness although she seems to comprehend things normally and she seems to be able to communicate nonverbally. She has some mild right arm weakness. NIH stroke scale is approximately 9. Extrem Other: No peripheral edema NIH Stroke Scale Internal: Initial- Upon Arrival Level of Consciousness: Alert Level of Consciousness Questions: Answers both questions correctly Level of Consciousness Commands: Performs both tasks correctly Best Gaze: Normal Visual: No visual loss Facial Palsy: Partial paralysis Motor Arm (Right): Drift Motor Arm (Left): No drift Motor Leg (Right): No drift Motor Leg (Left): No drift Limb Ataxia: Absent Sensory: Normal Best Language: Mute, global aphasia Dysarthia: Severe dysarthria Extinction and Inattention: No abnormality Score: 8 Medications Administered Discontinued Medications Generic Name Dose Route Start Last Admin Trade Name Freq PRN Reason Stop Dose Admin Iohexol 100 ml 02/20/24 10:33 02/20/24 10:34 Iohexol 350 Mg/Ml 100 Ml Infus..Btl IV 02/20/24 10:34 70 ml ONCE ONE Administration Medical Decision Making Medical Decision Making [facility] Narrative: The patient is a 43-year-old woman with diabetes who was also a smoker who 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 She has a right facial paralysis, a dense expressive aphasia and some mild right arm weakness. The history of this illness was obtained primarily from a niece who lives with the patient. The niece says that the last time that the patient was definitely out her baseline was at about 22:00 last night when the patient went to bed. The niece says that she heard the patient vomiting at around 01:00 this morning but the niece did not interact with the patient otherwise. Apparently the patient was well enough to drive a friend of the niece to school at around 07:00 but that friend apparently reported that the patient was having difficulty speaking at that time. The patient is not a thrombolytic candidate because it seems as though this may have been a wake up stroke. The patient has a CT scan that shows early changes of a possible stroke in the left middle cerebral artery territory. A CT angiogram shows an occlusion of the M3 and M4 segments of the left cerebral artery as well as an occluded left internal carotid artery with weak collateral and retrograde contrast filling of the left internal carotid siphon. Dr. Mcdaniel of Neurology was involved at this hospital. I contacted [facility] and spoke to Dr. Live of neurology. The patient will be transferred to the labor contractor at [facility]. Lab Data 02/20/24 10:36 02/20/24 10:36 Labs: Lab Results 02/20/24 02/20/24 02/20/24 Range/Units 10:18 10:19 10:36 WBC 11.3 H (4.8-10.8) X10*3/uL RBC 4.59 (4.20-5.50) X10*6/uL Hgb 13.7 (12.0-16.0) g/dl Hct 39.7 (37.0-47.0) % MCV 86.5 (80.0-98.0) fL MCH 29.8 (27.0-33.0) pg MCHC 34.5 (31.0-35.0) g/dl RDW 11.9 (11.0-16.0) % Plt Count 178 D (160-400) X10*3/uL MPV 10.5 (9.4-12.3) fL Immature Gran % (Auto) 0.4 (0.0-0.4) % Neut % (Auto) 73.8 H (45-73) % Lymph % (Auto) 20.6 (20-40) % Taney % (Auto) 3.8 (2-11) % Eos % (Auto) 1.0 (0-4) % Baso % (Auto) 0.4 (0-2) % Lymph # (Auto) 2.3 (1.2-4.9) X10*3/uL Taney # (Auto) 0.4 (0.1-1.2) X10*3/uL Eos # (Auto) 0.1 (0.0-0.4) X10*3/uL Baso # (Auto) 0.0 (0.0-0.2) X10*3/uL Abs Immat Gran (auto) 0.05 H (0.00-0.03) X10*3/uL Absolute Neuts (auto) 8.4 H (2.0-8.3) x10*3/uL Absolute Nucleated RBC 0.000 (0.0-0.012) X10*3/uL Nucleated RBC % (auto) 0.0 (0.0-0.2) /100WBC PT 12.5 H (10.9-12.4) SEC Whole Blood PT 12.9 (11.1-13.5) sec INR 1.1 (0.9-1.1) Whole Blood INR 1.1 (0.9-1.1) Sodium 135 (135-145) mmol/L Potassium 4.3 (3.3-5.1) mmol/L Chloride 103 (96-108) mmol/L Carbon Dioxide 23 (22-29) mmol/L Anion Gap 13 (12-20) BUN 8 L (9-16) mg/dL Creatinine 0.67 (0.5-1.4) mg/dL Estim Creat Clear Calc 108.0 Estimated GFR > 60 POC Glucose 219 H (60-115) mg/dL Random Glucose 236 H (60-115) mg/dL Calcium 8.9 D (8.4-10.2) mg/dL Magnesium 1.9 (1.6-2.6) mg/dL Total Bilirubin 0.3 (0.0-1.0) mg/dL Direct Bilirubin 0.1 (0.0-0.5) mg/dL AST 30 (5-31) U/L ALT 26 (0-31) U/L Alkaline Phosphatase 115 (39-117) U/L Troponin I High Sens < 2.7 (<3.5-17.0) ng/L B-Natriuretic Peptide 75 (<100) pg/mL Total Protein 6.5 (6.5-8.0) g/dL Albumin 3.6 (3.5-5.0) g/dL Beta HCG, Quant < 2 mIU/mL Ethyl Alcohol < 10 mg/dL Critical Care Time Critical Care Time Critical Care Time: Yes Total Critical Care Time: 35 Attestation: The patient was critically ill with a high probability of imminent or life- threatening deterioration. ?I spent greater than 30 minutes of discontinuous time evaluating the patient, delivering critical care at the bedside, discussing evaluating data with consultants. ?Critical care time does not include time spent performing separately billable procedures or teaching. ?Time spent performing critical care with 35 minutes. Discharge Plan Discharge Clinical Impression: Stroke Patient Disposition: Xfer [facility] Hospital Transfer Details: [facility] Prescriptions: No Action prednisone 20 mg tablet 40 mg PO DAILY 5 Days Qty: 10 0RF azithromycin 500 mg tablet See Rx Instructions PO .COMPLEX Qty: 3 0RF Rx Instructions: take 500 mg today (day 1), then 250 mg for 4 days (days 2-5) albuterol sulfate 90 mcg/actuation HFA aerosol inhaler 1 inh inhalation QID PRN (Reason: shortness of breath or wheezing) Qty: 8.5 0RF albuterol sulfate 0.63 mg/3 mL solution for nebulization 0.63 mg inhalation QID PRN (Reason: shortness of breath or wheezing) Qty: 90 0RF Robitussin Cough-Chest Tate DM 5-100 mg/5 mL liquid 10 ml PO Q4-8H PRN (Reason: cough) Qty: 118 0RF doxycycline monohydrate 100 mg tablet 100 mg PO BID 8 Days Qty: 16 0RF amoxicillin-pot clavulanate 875-125 mg tablet 1 tab PO BID Qty: 16 0RF penicillin V potassium 500 mg tablet 500 mg PO BID 10 Days Qty: 20 0RF chlorhexidine gluconate [Peridex] 0.12 % mouthwash 15 ml buccal BID Qty: 118 0RF Print Language: Persian
--- NOTE | 2024-02-20 10:19 | ECG_ITS ---
Test Reason : STROKE Blood Pressure : / mmHG Vent. Rate : 072 BPM Atrial Rate : 072 BPM P-R Int : 140 ms QRS Dur : 080 ms QT Int : 388 ms P-R-T Axes : 062 049 057 degrees QTc Int : 424 ms Normal sinus rhythm Normal ECG When compared with ECG of 24-MAR-2019 12:09, No significant change was found Referred By: Sahil Young Electronically Signed By:PANCHO LOPEZ MD
[2024-02-20 10:25] LABS: Glucose, Whole Blood 219 mg/dL (60-115)
[2024-02-20] MEDS: iohexoL 350 MG/ML 100 ML INFUS..BTL IV (10:34)
[2024-02-20 10:38] LABS: MANUAL DIFF FLAG NO
[2024-02-20 10:42] VITALS: BP 190/95; BP 198/86; PULSE 79; PULSE 96; RESP 18; TEMP 36.6; O2SAT 97; O2SAT 99; BMI 25.6
[2024-02-20 10:47] LABS: Basophils Percent Auto 0.4 % (0-2); Eosinophils Absolute Auto 0.1 X10*3/uL (0.0-0.4); Hematocrit 39.7 % (37.0-47.0); Hemoglobin 13.7 g/dl (12.0-16.0); Imm Gran Abs Auto 0.05 X10*3/uL (0.00-0.03); Imm Gran Pct Auto 0.4 % (0.0-0.4); Lymphocytes Absolute Auto 2.3 X10*3/uL (1.2-4.9); Lymphocytes Percent Auto 20.6 % (20-40); Mean Corpuscular HGB Conc 34.5 g/dl (31.0-35.0); Mean Corpuscular Hemoglobin 29.8 pg (27.0-33.0); Mean Corpuscular Volume 86.5 fL (80.0-98.0); Mean Platelet Volume 10.5 fL (9.4-12.3); Monocytes Absolute Auto 0.4 X10*3/uL (0.1-1.2); Monocytes Percent Auto 3.8 % (2-11); Neutrophils Absolute Auto 8.4 x10*3/uL (2.0-8.3); Neutrophils Percent Auto 73.8 % (45-73); Platelet Count 178 X10*3/uL (160-400); Red Blood Count 4.59 X10*6/uL (4.20-5.50); Red Cell Distribution Width 11.9 % (11.0-16.0); White Blood Count 11.3 X10*3/uL (4.8-10.8)
[2024-02-20 10:50] LABS: INTERNATIONAL NORM RATIO 1.1 (0.9-1.1); Prothrombin Time 12.5 SEC (10.9-12.4)
[2024-02-20 10:51] VITALS: BP 170/88; PULSE 96; RESP 18; O2SAT 97
[2024-02-20 10:54] LABS: Prothrombin Time Whole Bld POC 12.9 sec (11.1-13.5); ~PT, ~INR - Anti Coag Clinic 1.1 (0.9-1.1)
--- NOTE | 2024-02-20 10:55 | PC.NURSE ---
Pt BIBA from home for ?stroke like symptoms. LKW was 10pm last night. Per family, pt was bringing her friends daughter to school and started having right sided facial drooping/slurred/mumbled speech. Pt presents to the ED with right sided facial droop, right sided weakness, and slurred/mumbled speech. Pt a/ox4, no increased wob/sob noted, respirations even and unlabored, NSR on talent development manager, HR-77. Per pt, she takes coumadin for a clotting disorder and has been compliant with medications. Denies cp/n/v/d/blurry vision/dizziness or lightheadedness. Plan for labs/ekg, call peñaloza within reach, all needs met at this time.
--- NOTE | 2024-02-20 10:58 | MHC.STROKE ---
Called to ED for stroke alert. Pt in CT scan upon my arrival. Pt awake, speech garbled. Pt understands what is being said to her but unable to get anything intelligible out. LKWT 2200 02/19/24 Right upper extremity weakness. Able to move right leg. Right sided facial droop and unable to stick tongue out. Per EMS, pt has clotting disorder and when asked if she is on anticoagulants she shakes her head yes. Scans completed. Labs drawn. Attempted to reach the contact mom in her phone. Left a message to call the ED. Will continue to monitor
[2024-02-20 11:03] LABS: B Type Natriuretic Peptide 75 pg/mL (<100)
[2024-02-20 11:04] LABS: Alanine Aminotransferase 26 U/L (0-31); Albumin Level 3.6 g/dL (3.5-5.0); Alkaline Phosphatase 115 U/L (39-117); Anion Gap 13 (12-20); Aspartate Amino Transferase 30 U/L (5-31); Bilirubin Direct 0.1 mg/dL (0.0-0.5); Bilirubin Total 0.3 mg/dL (0.0-1.0); Blood Urea Nitrogen 8 mg/dL (9-16); Calcium 8.9 mg/dL (8.4-10.2); Carbon Dioxide 23 mmol/L (22-29); Chloride 103 mmol/L (96-108); Estimated Glomerular Filt Rate > 60; Ethanol < 10 mg/dL; Glucose Random 236 mg/dL (60-115); HCG Quantitative < 2 mIU/mL; Magnesium 1.9 mg/dL (1.6-2.6); Potassium 4.3 mmol/L (3.3-5.1); Sodium 135 mmol/L (135-145); Total Protein 6.5 g/dL (6.5-8.0); Troponin-I High Sensitivity < 2.7 ng/L (<3.5-17.0)
[2024-02-20 11:39] VITALS: BP 114/85; PULSE 59; RESP 15; TEMP 36.6; O2SAT 97
--- NOTE | 2024-02-20 11:46 | MHC.STROKE ---
Dr. Mcdaniel evaluated patient and spoke with Dr. Young. Recommendations provider to Dr. Young. Reaching out to [facility] for potential transfer
--- NOTE | 2024-02-20 11:47 | PM.NEUROCN ---
History of Present Illness Data of Consult Service Date: 02/20/24 Primary Care Provider: Unknown Physician HPI Reason for consult: Stroke 43 years old woman with underlying diagnosis of diabetes came to hospital for difficulty speaking. After discussing with the family it seems like that her loss time well was at least before midnight. She was with somebody at 07:00 and was noted to have difficulty speaking but it was not clear if antibody has talked to her before that. She was unable to provide any history. In emergency room she was noted to have difficulty speaking and right-sided facial weakness and stroke protocol was alerted. Review of Systems Review of Systems: Could not be done with [facility] Social History Social History Alcohol intake: never Smoked in Last 30 Days: No Use of substances other than those prescribed or required for medical reasons: No Advance Directives: No Advance Directives Information Provided: Yes Do you have a plan to hurt others: No Plan Patient : No Meds Allergies Allergy/AdvReac Type Severity Reaction Status Date / Time naproxen [NAPROXEN] Allergy Severe ANAPHYLAXIS Verified 02/20/24 10:44 codeine [CODEINE] Allergy Intermediate HIVES Verified 02/20/24 10:44 Sulfa (Sulfonamide Allergy Intermediate DIARRHEA Verified 02/20/24 10:44 Antibiotics) [SULFA (SULFONAMIDE ANTIBIOTICS)] Physical Exam Vital Signs: Vital Signs: Last Vital Signs Temp 97.9 F 02/20/24 11:39 Pulse 59 02/20/24 11:39 Resp 15 02/20/24 11:39 BP 114/85 02/20/24 11:39 Pulse Ox 97 02/20/24 11:39 O2 Del Method Room Air 02/20/24 11:39 BMI result Body Mass Index 25.6 Neuro: Other: She is alert and awake anxious tearful trying to speak but could not come up with words. When I asked her how many fingers I was showing, to, she showed me with her left hand to fingers. She was not able to say it with words. She was not able to repeat ?1-3?. She was not able to name cell phone in her hand, when asked what it was. There was moderate right-sided facial weakness. This seemed not to be any visual field defect. It did not notice any significant arm or leg weakness. Plantars were flexor. Results Labs 11/22/24 10:36 02/20/24 10:36 Labs: Short CBC 02/20/24 Range/Units 10:36 WBC 11.3 H (4.8-10.8) X10*3/uL Hgb 13.7 (12.0-16.0) g/dl Hct 39.7 (37.0-47.0) % Plt Count 178 D (160-400) X10*3/uL BMP 02/20/24 10:36 Sodium 135 Potassium 4.3 Chloride 103 Carbon Dioxide 23 BUN 8 L Creatinine 0.67 Calcium 8.9 D Liver Function 02/20/24 Range/Units 10:36 Total Bilirubin 0.3 (0.0-1.0) mg/dL Direct Bilirubin 0.1 (0.0-0.5) mg/dL AST 30 (5-31) U/L ALT 26 (0-31) U/L Alkaline Phosphatase 115 (39-117) U/L Albumin 3.6 (3.5-5.0) g/dL Head CT revealed a left frontal moderate-size cortical area of hypodensity suggestive of subacute infarct. CTA revealed either occlusion or dissection of left internal carotid artery and moderately severe stenosis of right carotid at origin. Blood flow was decreased in left middle cerebral artery but I did not notice any obvious stenosis or embolus. 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 My recommendation is to transfer her to [facility] for possible vascular intervention. In the meantime aspirin 81 mg is recommended. I recommend hydration to avoid hypotension has her other or right carotid is also significantly diseased. Procedures Date of Service Date of Service: 02/20/24
--- NOTE | 2024-02-20 12:02 | MHC.STROKE ---
Family member contact Salvatore Chan [phone] - significant other Natividad [phone] - Daughter Family updated on plan
[2024-02-20 12:21] VITALS: BP 114/85; PULSE 60; RESP 16; TEMP 36.6; O2SAT 97
--- NOTE | 2024-02-20 12:23 | PC.NURSE ---
Report given to Grace DE LA CRUZ- [facility]
[2024-02-20] MEDS: 0.9 % Sodium Chloride 1,000 ML 999 ML IV (12:24)
== END 2024-02-20 12:24 | disposition short-term general hospital (02) ==
PROVIDERS: Emergency Provider Emergency Medicine
DX: I63.9 Cerebral infarction, unspecified (principal); R53.1 Weakness; R47.01 Aphasia; R29.810 Facial weakness; R29.708 NIHSS score 8; E11.9 Type 2 diabetes mellitus without complications; F17.210 Nicotine dependence, cigarettes, uncomplicated
CPT/HCPCS: 36415; 70450; 70496; 70498; 80048; 80076; 80307; 82947; 83735; 83880; 84484; 84702; 85025; 85610; 93005; 99285; Q9967

== ENCOUNTER → 2024-02-20 10:19 | Outpatient (BNV) | payer OTHER, SELFPAY | PROVIDERS: Emergency Provider Emergency Medicine; Visit Provider Internal Medicine Cardiovascular Disease | DX: I63.9 Cerebral infarction, unspecified (principal) | CPT/HCPCS: 93010 ==

== ENCOUNTER → 2024-02-20 10:51 | Outpatient (BNV) | payer OTHER, SELFPAY | PROVIDERS: Emergency Provider Emergency Medicine; Visit Provider Psychiatry & Neurology Neurology | DX: I63.132 Cerebral infarction due to embolism of left carotid artery (principal) | CPT/HCPCS: 99283 ==